=== PATIENT | female | born 1975 | race African-American/Black ===

== ENCOUNTER → 2019-03-04 | Outpatient (CLI) | payer OTHER ==
--- NOTE | 2019-03-05 09:03 | KCIC ---
EXAM: Bilateral knees, standing view; bilateral hands, single view; bilateral feet, single view; cervical spine, single view; pelvis, single view. HISTORY: Polyarthralgia. COMPARISON: None. FINDINGS: Bilateral knees: A frontal standing view both knees is obtained. There is no fracture, dislocation or subluxation. No lytic or sclerotic osseous lesion is seen. Bilateral hands: Single views of both hands are obtained. There is no fracture, dislocation or subluxation. The alignment and joint spaces are unremarkable. Bilateral feet: Single views of both feet are obtained. There is no fracture, dislocation or subluxation. The alignment and joint spaces are unremarkable. Cervical spine: A lateral view the cervical spine is obtained. 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 There is mild reversal of cervical lordosis. There is no significant listhesis. The nonfused disc spaces are preserved. No fracture is seen. Pelvis: A frontal view of the pelvis is obtained. There is no fracture, dislocation or subluxation. The femoral heads are normal in configuration and seated appropriately. IMPRESSION: 1. No acute osseous finding. 2. Congenital fusion of C5-C6. Electronically signed by: Gita Avery MD (03/05/2019 9:00 AM) [facility]
== END | disposition home or self-care (01) ==
LOC: KCIC 16:02
PROVIDERS: ATTEND Internal Medicine Rheumatology
DX: M43.22 Fusion of spine, cervical region (principal); M40.56 Lordosis, unspecified, lumbar region; M05.79 Rheumatoid arthritis with rheumatoid factor of multiple sites without organ or systems involvement
CPT/HCPCS: 72020; 72170; 73120; 73565; 73620